=== PATIENT | male | born 1965 | race Caucasian/White ===

== ENCOUNTER 2020-02-23 06:05 | Inpatient (IN) ==
[2020-02-23] MEDS ORDERED: NS 0.9% 1000 ml BAG 1,000 ML IV ONE ×3 (06:10→14:42)
[2020-02-23 07:35] LABS: ABS Basophils 0.1 10^3/ul (0-0.2); ABS Lymphocytes 0.9 10^3/ul (1.0-4.8); ABS Monocytes 0.8 10^3/ul (0-0.8); ABS Neutrophils 8.3 10^3/ul (1.5-7.7); Eosinophil % 0.1 %; Hematocrit 40 % (42-52); Mean Corpuscular HGB Conc 35 g/dL (31-36); Mean Corpuscular Hemoglobin 31 pg (27-31); Mean Corpuscular Volume 90 fL (80-94); Mean Platelet Volume 7.6 fL (7.4-10.4); Platelet Count 205 10^3/uL (150-450); Red Blood Count 4.47 10^6 /uL (4.18-5.48); Red Cell Distribution Width 14 % (10-15)
[2020-02-23 07:59] LABS: ALT 32 U/L (7-52); AST 72 U/L (13-39); Albumin/Globulin Ratio 1.9 (1-3); Alkaline Phosphatase 36 U/L (34-104); Anion Gap 15 mmol/L (2-11); BUN/Creatinine Ratio 9.9 (8-20); Blood Urea Nitrogen 10 mg/dL (6-24); CO2 Carbon Dioxide 19 mmol/L (22-32); Calcium 8.2 mg/dL (8.6-10.3); Chloride 109 mmol/L (101-111); Creatine Kinase 203 U/L (10-223); EGFR African American 93.5 (>60); EGFR Non-African American 77.3 (>60); Globulin 2.1 g/dL (2-4); Glucose 137 mg/dL (70-100); Sodium 143 mmol/L (135-145); Total Protein 6.1 g/dL (6.4-8.9)
[2020-02-23 08:08] LABS: Troponin I 0.03 ng/mL (<0.03)
[2020-02-23 08:13] LABS: Alcohol, S 304 mg/dL (<10); Salicylate < 2.50 mg/dL (<30)
[2020-02-23 08:17] LABS: Acetaminophen < 15 mcg/mL
[2020-02-23 10:58] LABS: Troponin I 0.14 ng/mL (<0.03)
[2020-02-23] MEDS ORDERED: Iodixanol (CONTRAST) 320 MG/ML 100 ML SDV IV ONE (11:06)
[2020-02-23 11:50] LABS: Urine Appearance Clear; Urine Bilirubin Negative (Negative); Urine Blood Negative (Negative); Urine Color Straw; Urine Glucose 1+(50 mg/dL) (Negative); Urine Ketones 1+ (Negative); Urine Nitrite Negative (Negative); Urine Protein Negative (Negative); Urine Specific Gravity 1.011 (1.010-1.030); Urine Urobilinogen Negative (Negative)
[2020-02-23 12:23] LABS: Urine Benzodiazepine Screen None Detected (None Detect); Urine Cannabinoids Screen Presumptive Positive (None Detect); Urine Opiates Screen None Detected (None Detect)
[2020-02-23] MEDS ORDERED: Piperacillin/Tazobac ADVAN 3.375 GM in NS 0.9% 100 ml BAG 100 ML IV ONE (12:57)
[2020-02-23] MEDS ORDERED: Zosyn per Pharmacy NOTE FOLLOW UP SCH (13:00)
[2020-02-23 14:40] LABS: Troponin I 0.24 ng/mL (<0.03)
[2020-02-23] MEDS: ZOSYN 3.375 GM Q8H per EXTENDED INFUSION IV SCH (16:31)
[2020-02-23] MEDS: NS 0.9% 1000 ml BAG 1,000 ML IV SCH (16:31)
[2020-02-23 17:13] LABS: Creatine Kinase 192 U/L (10-223)
[2020-02-23 20:42] LABS: Troponin I 0.21 ng/mL (<0.03)
[2020-02-23] MEDS: Heparin 5000 UNITS/ML 1 mL VIAL SUBCUT SCH (21:21)
[2020-02-24] MEDS: ZOSYN 3.375 GM Q8H per EXTENDED INFUSION IV SCH ×3 (01:57→16:59)
[2020-02-24 05:51] LABS: ABS Lymphocytes 0.9 10^3/ul (1.0-4.8); ABS Monocytes 0.7 10^3/ul (0-0.8); ABS Neutrophils 10.6 10^3/ul (1.5-7.7); Hematocrit 33 % (42-52); Hemoglobin 11.9 g/dL (14.0-18.0); Lymphocyte % 7.3 %; Mean Corpuscular HGB Conc 36 g/dL (31-36); Mean Corpuscular Hemoglobin 32 pg (27-31); Mean Corpuscular Volume 88 fL (80-94); Mean Platelet Volume 7.6 fL (7.4-10.4); Platelet Count 155 10^3/uL (150-450); Red Blood Count 3.77 10^6 /uL (4.18-5.48); Red Cell Distribution Width 14 % (10-15); White Blood Count 12.2 10^3/uL (3.5-10.8)
[2020-02-24 06:07] LABS: BUN/Creatinine Ratio 10.4 (8-20); Calcium 7.6 mg/dL (8.6-10.3); EGFR African American 127.9 (>60); EGFR Non-African American 105.7 (>60); Potassium 3.3 mmol/L (3.5-5.0)
[2020-02-24] MEDS: Cholecalciferol (VIT D3) 1,000 unit TAB PO SCH (08:13)
[2020-02-24] MEDS: Fluticasone NASAL SPRAY 50MCG 16 gm SPRAY BTL BOTH NARES SCH ×2 (08:14→20:29)
[2020-02-24] MEDS: Heparin 5000 UNITS/ML 1 mL VIAL SUBCUT SCH ×2 (08:26→20:29)
[2020-02-24] MEDS ORDERED: Potassium Chlor 20 meq TAB.ER PO ONE (08:49)
[2020-02-24] MEDS: NS 0.9% 1000 ml BAG 1,000 ML IV SCH (12:33)
[2020-02-25] MEDS: ZOSYN 3.375 GM Q8H per EXTENDED INFUSION IV SCH ×2 (01:38→08:18)
[2020-02-25] MEDS: NS 0.9% 1000 ml BAG 1,000 ML IV SCH (03:58)
[2020-02-25] MEDS: Cholecalciferol (VIT D3) 1,000 unit TAB PO SCH (08:18)
[2020-02-25] MEDS: Heparin 5000 UNITS/ML 1 mL VIAL SUBCUT SCH (08:19)
[2020-02-25] MEDS: Fluticasone NASAL SPRAY 50MCG 16 gm SPRAY BTL BOTH NARES SCH ×2 (08:19→21:03)
[2020-02-25 10:28] LABS: Hematocrit 35 % (42-52); Hemoglobin 12.2 g/dL (14.0-18.0); Mean Corpuscular HGB Conc 35 g/dL (31-36); Mean Corpuscular Hemoglobin 31 pg (27-31); Mean Corpuscular Volume 87 fL (80-94); Mean Platelet Volume 7.8 fL (7.4-10.4); Platelet Count 164 10^3/uL (150-450); Red Blood Count 3.99 10^6 /uL (4.18-5.48); Red Cell Distribution Width 14 % (10-15); White Blood Count 15.9 10^3/uL (3.5-10.8)
[2020-02-25 10:43] LABS: BUN/Creatinine Ratio 5.7 (8-20); Calcium 8.5 mg/dL (8.6-10.3); EGFR African American 109.6 (>60); EGFR Non-African American 90.6 (>60); Magnesium 1.5 mg/dL (1.9-2.7); Potassium 3.3 mmol/L (3.5-5.0)
[2020-02-25] MEDS ORDERED: Magnesium Sulfate IV 3 GM in NS 0.9% 100 ml BAG 100 ML IVPB ONE (10:43)
[2020-02-25] MEDS ORDERED: Potassium Chlor 20 meq TAB.ER PO ONE (10:43)
[2020-02-25] MEDS: Enoxaparin 40 MG/0.4 ML SYR SUBCUT SCH (21:03)
[2020-02-25] MEDS: Amoxicillin/Clavul 875/125 TAB (Augmentin 875 tab) PO SCH (21:04)
[2020-02-26] MEDS: Benzocaine/Menthol LOZ MT PRN (00:03)
[2020-02-26 06:15] LABS: Hematocrit 37 % (42-52); Hemoglobin 12.6 g/dL (14.0-18.0); Mean Corpuscular HGB Conc 34 g/dL (31-36); Mean Corpuscular Hemoglobin 30 pg (27-31); Mean Corpuscular Volume 87 fL (80-94); Mean Platelet Volume 7.8 fL (7.4-10.4); Platelet Count 208 10^3/uL (150-450); Red Blood Count 4.23 10^6 /uL (4.18-5.48); Red Cell Distribution Width 13 % (10-15); White Blood Count 12.9 10^3/uL (3.5-10.8)
[2020-02-26 06:35] LABS: BUN/Creatinine Ratio 7.5 (8-20); C Reactive Protein 272.59 mg/L (<8.01); Calcium 8.4 mg/dL (8.6-10.3); EGFR African American 122.4 (>60); EGFR Non-African American 101.1 (>60); Magnesium 2.1 mg/dL (1.9-2.7); Potassium 3.5 mmol/L (3.5-5.0)
[2020-02-26] MEDS: Fluticasone NASAL SPRAY 50MCG 16 gm SPRAY BTL BOTH NARES SCH ×2 (08:33→19:54)
[2020-02-26] MEDS: Amoxicillin/Clavul 875/125 TAB (Augmentin 875 tab) PO SCH ×2 (08:33→19:54)
[2020-02-26] MEDS: Cholecalciferol (VIT D3) 1,000 unit TAB PO SCH (08:34)
[2020-02-26] MEDS: Enoxaparin 40 MG/0.4 ML SYR SUBCUT SCH (19:54)
[2020-02-27] MEDS: Benzocaine/Menthol LOZ MT PRN (02:33)
[2020-02-27] MEDS: Cholecalciferol (VIT D3) 1,000 unit TAB PO SCH (07:34)
[2020-02-27] MEDS: Amoxicillin/Clavul 875/125 TAB (Augmentin 875 tab) PO SCH (07:35)
[2020-02-27] MEDS: Fluticasone NASAL SPRAY 50MCG 16 gm SPRAY BTL BOTH NARES SCH (07:38)
[2020-02-27 08:42] LABS: Hematocrit 36 % (42-52); Hemoglobin 12.4 g/dL (14.0-18.0); Mean Corpuscular HGB Conc 35 g/dL (31-36); Mean Corpuscular Hemoglobin 30 pg (27-31); Mean Corpuscular Volume 87 fL (80-94); Mean Platelet Volume 7.6 fL (7.4-10.4); Platelet Count 272 10^3/uL (150-450); Red Blood Count 4.12 10^6 /uL (4.18-5.48); Red Cell Distribution Width 13 % (10-15); White Blood Count 10.2 10^3/uL (3.5-10.8)
[2020-02-27 08:51] LABS: Calcium 8.6 mg/dL (8.6-10.3); EGFR Non-African American 104.1 (>60); Potassium 3.2 mmol/L (3.5-5.0)
[2020-02-27] MEDS ORDERED: Potassium Chlor 20 meq TAB.ER PO ONE (09:28)
[2020-02-27 09:47] LABS: C Reactive Protein 167.45 mg/L (<8.01); Magnesium 1.9 mg/dL (1.9-2.7)
[2020-02-27 11:32] VITALS: BP 124/85
== END 2020-02-27 13:40 | disposition home or self-care (01) | DRG 137 ==
LOC: EDBD → EDUNIT# → ED 06:05 → MEDTELE 12:57
PROVIDERS: ADMIT Hospitalist; ATTEND Internal Medicine